=== PATIENT | male | born 1960 | race Caucasian/White ===

== ENCOUNTER 2022-10-17 00:11 | Emergency (ER) | payer MEDICARE ==
[~2022-10-17] VITALS: Ht 175.3 cm; Wt 77.1 kg
--- NOTE | 2022-10-17 00:36 | NUR ---
Dr. Coto evaluating patient at bedside. MSE in progress.
[2022-10-17] MEDS ORDERED: TDAP DIPH,PERTUSS,TET VAC/PF 0.5 ML DISP.SYRIN IM ONE ×2 (00:53→01:00)
--- NOTE | 2022-10-17 01:02 | NUR ---
Patient discharged to home in stable condition. Written and verbal after care instructions given. Patient verbalizes understanding of instructions. Stressed follow up or return to ER for worsening s/s.
[2022-10-17 01:03] VITALS: BP 122/85; TEMP 97.8; O2SAT 99
== END 2022-10-17 01:03 | disposition home or self-care (01) ==
LOC: ER 00:11
DX: T65.91XA Toxic effect of unspecified substance, accidental (unintentional), initial encounter (principal); G43.909 Migraine, unspecified, not intractable, without status migrainosus; Y92.89 Other specified places as the place of occurrence of the external cause
CPT/HCPCS: 90715; A4663